=== PATIENT | male | born 1985 | race Caucasian/White ===

== ENCOUNTER 2017-01-13 08:12 | Emergency (ER) | payer BC ==
--- NOTE | 2017-01-13 08:36 | EDM.PDOC ---
ED HPI GENERAL MEDICAL PROBLEM - General Chief Complaint: Neuro Symptoms/Deficits Stated Complaint: CONCUSSION-SENT BY CLINIC Time Seen by Provider: 01/13/17 08:31 Source of Information: Reports: Patient History Limitations: Reports: No Limitations - History of Present Illness INITIAL COMMENTS - FREE TEXT/NARRATIVE: 31-year-old male attends the clinic after being sent from the walk-in clinic / family medicine clinic. He reports being struck in the right parietal scalp by a baseball thrown by another male on ThursdayJanuary 11. He was running between first and second [place] and the shortstop threw the ball and accidentally struck him in the the head. The ball was thrown from very close range stretches for 5 feet therefore had good force on it. He was done for a period of time and days for a period of time but check it off. He subtotally developed a headache and did not play much the rest of the game. Yesterday of difficulty at work trying to focus on the computer. He reports that he vomited 4 times yesterday. Feels a little offkilter a little off balance. Vision is okay but things seem to be slowed down more than they should be Process information as fast as normal. Has some mild neck discomfort but states he always has a bit of the neck discomforts a little worse since being struck by the ball. Reports no other injuries. Onset: Sudden Onset Date: 01/11/17 Onset Time: 17:00 Duration: Day(s): Location: Reports: Head (Right parietal scalp.) Quality: Reports: Ache, Throbbing Severity: Moderate Improves with: Reports: None Worsens with: Reports: Other (Condition seems to worsen if he is trying to work or focus or pay attention like computer activity etc.) Context: Reports: Activity (Was playing baseball when he was injured by the). Denies: Exercise, Lifting, Sick Contact, Trauma, Other Associated Symptoms: Reports: Confusion, Headaches (Described as a constant throbbing discomfort where he was struck in the scalp.), Seizure. Denies: No Other Symptoms, Chest Pain, Cough, cough w sputum, Diaphoresis (Transient), Fever/Chills, Loss of Appetite, Malaise, Nausea/Vomiting, Rash, Shortness of Breath, Syncope, Weakness - Related Data Allergies Allergy/AdvReac Type Severity Reaction Status Date / Time No Known Allergies Allergy Verified 01/13/17 08:22 Home Meds: Home Meds Ondansetron [Zofran ODT] 4 mg PO Q6H #6 tab.dis 01/13/17 [Rx] Past Medical History - Past Health History Medical/Surgical History: Denies Medical/Surgical History Neurological History: Reports: Concussion - Past Surgical History HEENT Surgical History: Reports: Tonsillectomy Male Surgical History: Reports: Vasectomy Social & Family History - Family History Family Medical History: Noncontributory - Tobacco Use Smoking Status *Q: Never Smoker Second Hand Smoke Exposure: No - Caffeine Use Caffeine Use: Reports: None - Recreational Drug Use Recreational Drug Use: No - Living Situation & Occupation Living situation: Reports: Occupation: Employed ED ROS GENERAL - Review of Systems Review Of Systems: See Below Constitutional: Reports: No Symptoms HEENT: Reports: No Symptoms Respiratory: Reports: No Symptoms Cardiovascular: Reports: No Symptoms Endocrine: Reports: No Symptoms GI/Abdominal: Reports: No Symptoms : Reports: No Symptoms Musculoskeletal: Reports: No Symptoms Skin: Reports: No Symptoms Neurological: Reports: No Symptoms Psychiatric: Reports: No Symptoms Hematologic/Lymphatic: Reports: No Symptoms Immunologic: Reports: No Symptoms ED EXAM, NEURO - Physical Exam Exam: See Below Exam Limited By: No Limitations General Appearance: Alert, WD/WN, No Apparent Distress Eye Exam: Bilateral Eye: Normal Inspection, PERRL Ears: Normal TMs Nose: Normal Inspection Throat/Mouth: Normal Inspection, Normal Lips, Normal Teeth, Normal Oropharynx Head Exam: Other (Apparently had a hematoma with the site of where the baseball struck him in the right parietal scalp but no hematomas evident on exam at this time. Scalp remains somewhat tender. He's can clench his teeth and complete tract the temporalis muscle without pain. Some pain in the tragus of the right ear.) Neck: Normal Inspection, Full Range of Motion, Tender Lateral (Mild tenderness lateral neck bilaterally.) Neurological: Alert, Normal Mood/Affect, Normal Dorsiflexion, CN II-XII Intact, Normal Plantar Flexion, Normal Gait, Normal Reflexes, No Motor/Sensory Deficits , Oriented x 3 Extremities: Normal Inspection, Normal Range of Motion, Non-Tender, No Pedal Edema, Mottled Psychiatric: Normal Affect Skin Exam: Warm, Dry, Intact, Normal Color, No Rash Course - Vital Signs Last Recorded V/S: Last Vital Signs Temp 36.4 C 01/13/17 08:17 Pulse 67 01/13/17 08:17 Resp 16 01/13/17 08:17 BP 139/82 01/13/17 08:17 Pulse Ox 97 01/13/17 08:17 - Radiology Interpretation Free Text/Narrative:: 33-year-old male reports to the ED after being struck in the right side of the head by a baseball thrown by another male during the game on January 11. He states he was stunned and dazed for a period of time but felt a headache and did not play much the rest again. Yesterday work he found it difficult to focus on task on hand particularly at the computer. End of vomiting 4 times. No home is ill. No diarrhea occurred. Visible mild constant throbbing headache. No visual changes but feels a little off balance. States things seemed to be slow down and just not quite right. By history he has suffered a mild concussion. Neuro exam at this time is grossly normal. CT of the brain will be carried out to rule out a subdural hematoma since the nature of the force was potential enough to cause a subdural. - Re-Assessments/Exams Free Text/Narrative Re-Assessment/Exam: 01/13/17 09:02 CT of the head and brain is within normal limits showing no skull fractures or intracranial hemorrhage. Diagnosis is therefore concussion felt to be mild to moderate. Abdomen suggest the patient take the rest the week off of work since his work involves a lot of computer and hard focusing cognitive function. Off work until next Thursday. No physical at the activity or exercise for the next 2 weeks. We'll send him home with 6 tablets of Zofran 4 mg sublingually every 6 hours. For nausea relief. Departure - Departure Time of Disposition: 09:12 Disposition: Home, Self-Care 01 Condition: Fair Clinical Impression: Closed head injury with concussion Qualifiers: Encounter type: initial encounter Loss of consciousness presence/duration: without LOC Qualified Code(s): S06.0X0A - Concussion without loss of consciousness, initial encounter - Discharge Information Prescriptions: Ondansetron [Zofran ODT] 4 mg PO Q6H #6 tab.dis Instructions: Concussion, Adult, [id number], Head Injury, Adult Referrals: PCP,None [Primary Care Provider] - Forms: ED Department Discharge, Return to Work/School Form Additional Instructions: Evaluation the emergency room today in regards to closed head injury suffered during baseball game when struck by baseball right parietal scalp. History you have symptoms suggestive of a mild to moderate concussion. CT head was done to rule out a subdural hematoma due to the nature of the trauma itself. T of the brain is normal. No skull fractures are identified. Treatment at this time is actually rest of the brain. Just off work for the rest of this week but in physical activities for the next 72 hours. Suggest no return to active physical sport activity for at least 2 weeks. He is okay to use Tylenol and/or Motrin for pain relief headache relief etc. Light activities are okay. Suggest nothing that is physically or mentally demanding for the next several days until concussion symptoms subtle. This usually be about 7 days from the time of injury. If symptoms persist after that you need to be followed up by your personal physician.
--- NOTE | 2017-01-13 09:22 | CT ---
Head CT Technique: Multiple axial sections through the brain were obtained. Intravenous contrast was not utilized. Comparison: Previous MRI brain of 12/22/12. Findings: Ventricles along with basal cisterns and sulci over the convexities are within normal limits. 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 No abnormal parenchymal densities are seen. No evidence of intracranial hemorrhage. No midline shift or mass effect is seen. Bone window settings were reviewed which shows the visualized sinuses to appear clear. No acute calvarial abnormality is seen. Impression: 1. Incidental pineal cyst which is stable. No acute intracranial abnormality is seen. Diagnostic code #2
[2017-01-13 09:36] VITALS: BP 122/79
== END 2017-01-13 09:25 | disposition home or self-care (01) ==
LOC: JD.ED 08:12
DX: S06.0X0A Concussion without loss of consciousness, initial encounter (principal); Z98.890 Other specified postprocedural states; W21.03XA Struck by baseball, initial encounter
CPT/HCPCS: 70450; 70450-26; 99284; 99284-25